=== PATIENT | female | born 2000 | race Two or more races ===

== ENCOUNTER 2023-12-11 18:36 | Emergency (ER) | payer OTHER ==
[~2023-12-11] VITALS: Ht 177.8 cm; Wt 61.7 kg
[2023-12-11 23:46] LABS: HEMOGLOBIN 11.9 g/dL (12.0-15.00); MEAN CELL VOLUME 77.4 fL (80.00-100.00); MEAN CORPUSCULAR HEMOGLOBIN 25.6 pg (27.00-32.0); MEAN CORPUSCULAR HGB CONC 33.1 g/dl (32.0-36.0); PLATELET COUNT 166 K/uL (150-450); RED BLOOD COUNT 4.65 M/uL (4.00-6.00); RED CELL DISTRIBUTION WIDTH 14.4 % (11.5-14.5)
[2023-12-12 00:11] LABS: ALBUMIN 3.9 gm/dL (3.4-5.0); BILIRUBIN TOTAL 0.3 mg/dL (0.3-1.2); CALCIUM 9.3 mg/dL (8.5-10.1); CREATININE SERUM 0.89 mg/dL (0.55-1.02); GFR 78.6; GLOBULINA 3.5 G/DL (2.4-3.5); POTASSIUM 3.49 mEq/L (3.5-5.1); TOTAL PROTEIN 7.4 gm/dL (6.4-8.2)
[2023-12-12] MEDS ORDERED: KETOROLAC TROMETHAMINE 30 MG VIAL IM STA (00:16)
[2023-12-12 00:36] LABS: URINE APPEARANCE Clear; URINE BILIRRUBIN Negative (NEGATIVE); URINE BLOOD Small; URINE COLOR Yellow; URINE GLUCOSE Negative (NEGATIVE); URINE LEUKOCYTE Trace; URINE NITRATE Negative; URINE PROTEIN Negative (NEGATIVE); URINE UROBILINOGEN 0.2 E.U./dl
[2023-12-12 00:40] LABS: URINE BACTERIA 200.2 uL (0.0-1933); URINE EPITHELIAL CELLS 13.2 uL (0.0-38.8); URINE RBC 19.8 uL (0.0-20.8); URINE WBC 7.2 uL (0.0-23.2)
[2023-12-12] MEDS ORDERED: KETO10TA2 PO (03:00)
== END 2023-12-12 03:10 ==
LOC: ER 18:36
PROVIDERS: General Practice
DX: R10.2 Pelvic and perineal pain (principal); M54.89 Other dorsalgia